=== PATIENT | female | born 1990 | race Two or more races ===

== ENCOUNTER 2022-03-27 07:45 | Emergency (ER) | payer OTHER ==
[~2022-03-27] VITALS: Ht 165.1 cm; Wt 136.1 kg
== END 2022-03-27 09:30 | disposition home or self-care (01) ==
LOC: ER 07:45
DX: S93.402A Sprain of unspecified ligament of left ankle, initial encounter (principal); Y93.01 Activity, walking, marching and hiking; Y93.9 Activity, unspecified; Y92.9 Unspecified place or not applicable